=== PATIENT | male | born 1995 | race Caucasian/White ===

== ENCOUNTER 2018-01-16 14:24 | Emergency (ER) | payer OTHER ==
[~2018-01-16] VITALS: Ht 175.3 cm; Wt 85.3 kg
== END 2018-01-16 17:48 | disposition home or self-care (01) ==
LOC: ED 14:24
DX: S01.01XA Laceration without foreign body of scalp, initial encounter (principal); Z88.2 Allergy status to sulfonamides; X58.XXXA Exposure to other specified factors, initial encounter; Y93.01 Activity, walking, marching and hiking
CPT/HCPCS: 99283